=== PATIENT | female | born 2000 | race Caucasian/White ===

== ENCOUNTER 2024-09-06 17:34 | Emergency (ER) | payer BC, SELFPAY ==
[2024-09-06 17:55] VITALS: BP 117/78; PULSE 74; RESP 18; TEMP 36.8; O2SAT 99; BMI 26.6
--- NOTE | 2024-09-06 18:04 | ED_ITS ---
HPI - Extremity Injury (Upper) General Chief Complaint: Extremity Pain/Injury, Upper Stated Complaint: Left arm injury - poss broken Time Seen by Provider: 09/06/24 17:55 History of Present Illness HPI narrative: This 23-year-old female comes in with an injury to her left elbow. She was at softball practice and got hit in the left elbow by a ball going about 60 miles an hour. She does not report any other injury. She is moving her fingers normally and has no altered sensation. She does have pain radiating from her elbow down toward her hand. Related Data Home Medications ?Medication ?Instructions ?Recorded ?Confirmed cetirizine 10 mg tablet (24Hour 10 mg PO DAILY 09/06/24 09/06/24 Allergy) dextroamphetamine-amphetamine 5 mg 1 tab PO DAILY PRN 09/06/24 09/06/24 tablet hydroxyzine HCl 25 mg tablet 25 - 50 mg PO BID PRN 09/06/24 09/06/24 Allergies Allergy/AdvReac Type Severity Reaction Status Date / Time tramadol AdvReac Intermediate Nausea Verified 09/06/24 18:02 Review of Systems Status of ROS: Reports: 10 or more systems reviewed and unremarkable except as noted in History and below Narrative: Constitutional: No fevers, no weight gain or loss. Eyes: No discharge. No vision changes. HENT: No congestion, no sore throat, no ear pain. Cardiovascular: No chest pain, no palpitations. Respiratory: No shortness of breath, no wheezes, no cough. Gastrointestinal: No abdominal pain, no vomiting, no diarrhea. Genitourinary: No dysuria, no hematuria. Musculoskeletal: Left elbow injury as described above. Skin: No rashes, no pruritis. Neurological: No dizziness, weakness, sensory change, speech change. Endo/Heme/Allergies: No bruising or bleeding. No polydipsia. Pysch: no suicidality, no anxiety, no insomnia. All other systems reviewed and are negative. PFSH PFSH Social History Smoking Status: Never smoker Second hand tobacco smoke exposure: No How often do you have a drink containing alcohol: never AUDIT-C Alcohol total score: 0 Non-prescribed substance use: denies use Exam Narrative: Exam Narrative: Constitutional: Well-developed, well-nourished, no acute distress. HEENT: Normocephalic, atraumatic. Neck: Normal range of motion. Nontender. Supple. Heart: Intact distal pulses. Lungs: No chest discomfort. No wheezes, rhonchi, or rales. Abdomen: Nontender. Back: Normal range of motion. Extremities: Left elbow has some erythema overlying the radial head laterally. There is no other skin injury. There is no obvious swelling. Range of motion i s decreased due to pain. Skin: Intact. No rash. Warm. No erythema or pallor. Neurologic: No altered sensation. No weakness. Alert and oriented. Psychiatric: No suicidality. No anxiety or depression. No insomnia. Nursing notes and vitals signs are reviewed. Const: Vital Signs, click to edit/add: Vital Signs - 24 hr 09/06/24 17:55 Temperature 98.2 F Pulse Rate [Pulse Oximeter] 74 Respiratory Rate 18 Blood Pressure [Ri t Upper Arm] 117/78 Pulse Oximetry 99 Oxygen Delivery Me thod Room Air Course Vital Signs Vital signs: Initial Vital Signs Temperature 98.2 F 09/06/24 17:55 Temperature Source Temporal Artery Scan 09/06/24 17:55 Pulse Rate 74 09/06/24 17:55 Respiratory Rate 18 09/06/24 17:55 Blood Pressure 117/78 09/06/24 17:55 Blood Pressure Mean 91 09/06/24 17:55 Blood Pressure Position Semi-Fowlers 09/06/24 17:55 Pulse Oximetry 99 09/06/24 17:55 Oxygen Delivery Method Room Air 09/06/24 17:55 Vital Signs Temperature 98.2 F 09/06/24 17:55 Pulse Rate 74 09/06/24 17:55 Respiratory Rate 18 09/06/24 17:55 Blood Pressure 117/78 09/06/24 17:55 Pulse Oximetry 99 09/06/24 17:55 Oxygen Delivery Method Room Air 09/06/24 17:55 Temperature 98.2 F 09/06/24 17:55 Pulse Rate 74 09/06/24 17:55 Respiratory Rate 18 09/06/24 17:55 Blood Pressure 117/78 09/06/24 17:55 Pulse Oximetry 99 09/06/24 17:55 Oxygen Delivery Method Room Air 09/06/24 17:55 MDM - Extremity Injury (Upper) MDM Narrative Medical decision making narrative: This patient comes in for evaluation of an injury to her left elbow as described above. X-ray imaging is negative for any kind of fracture or malalignment. The patient received a sling and an [employer] prescription for Toradol. She is encouraged to increase activity as tolerated. Imaging Data XR L Elbow: Radiologist's impression: No acute osseous injuries or abnormalities are noted. Discharge Plan Discharge Clinical Impression: Contusion of elbow, left Patient Disposition: Home, Self-Care Condition: Stable Additional Instructions: Take medication as needed and directed. Use sling also as needed for comfort. Increase activity as tolerated. Follow up with MD return if worsening. Prescriptions: No Action hydroxyzine HCl 25 mg tablet 25 - 50 mg PO BID PRN dextroamphetamine-amphetamine 5 mg tablet 1 tab PO DAILY PRN cetirizine [24Hour Allergy] 10 mg tablet 10 mg PO DAILY Follow Up/Referrals: Provider,Not a Local [Primary Care Provider] - Stand Alone Forms: [facility] Info Instructions
--- NOTE | 2024-09-06 18:04 | CRLHL7_ITS ---
For Patients: As a result of the Cures Act, medical imaging exams and procedure reports are released immediately into your electronic medical record. You may view this report before your referring provider. If you have questions, please contact your health care provider. INDICATION: Elbow INJURY- hit by a softball, injury hit by a softball TECHNIQUE: Elbow radiograph 2 views left COMPARISON: None FINDINGS: Bone: No acute fractures or aggressive bone lesions are identified. Joint: The elbow joint is unremarkable. No significant displacement of the anterior or posterior fat pads noted to suggest an effusion. Soft tissue: Unremarkable. No radiopaque foreign bodies are seen. IMPRESSION: 1. No acute osseous injuries or abnormalities are noted. Dictated by: Shantanu Nettles MD @ 09/06/2024 18:47:35 (Electronically Signed)
[2024-09-06 19:27] VITALS: BP 121/80; PULSE 70; RESP 18; TEMP 36.8; O2SAT 99
[2024-09-06 19:31] VITALS: BP 121/80; PULSE 70; RESP 18; TEMP 36.8
== END 2024-09-06 19:31 | disposition home or self-care (01) ==
PROVIDERS: Emergency Provider Emergency Medicine Emergency Medical Services
DX: S50.02XA Contusion of left elbow, initial encounter (principal); W21.07XA Struck by softball, initial encounter; Y93.64 Activity, baseball
CPT/HCPCS: 73080; 99283; 99284